=== PATIENT | female | born 1990 | race Caucasian/White ===

== ENCOUNTER → 2023-09-13 16:01 | Outpatient (REF) | payer OTHER, SELFPAY | LOC: PNTC 16:01 | PROVIDERS: ATTENDING PHYSICIAN Obstetrics & Gynecology; REFERRING PHYSICIAN Advanced Practice Midwife | DX: Z36.0 Encounter for antenatal screening for chromosomal anomalies (principal); Z36.82 Encounter for antenatal screening for nuchal translucency; Z34.90 Encounter for supervision of normal pregnancy, unspecified, unspecified trimester | CPT/HCPCS: 76801; 76813 ==

== ENCOUNTER → 2024-02-07 11:34 | Outpatient (REF) | payer OTHER, SELFPAY | LOC: PNTC 11:34 | PROVIDERS: ATTENDING PHYSICIAN Advanced Practice Midwife | DX: O99.210 Obesity complicating pregnancy, unspecified trimester (principal) | CPT/HCPCS: 59025; 76815 ==

== ENCOUNTER → 2024-02-18 09:31 | Outpatient (REF) | payer OTHER, SELFPAY | LOC: PNTC 09:31 | PROVIDERS: ATTENDING PHYSICIAN Advanced Practice Midwife | DX: O99.210 Obesity complicating pregnancy, unspecified trimester (principal) | CPT/HCPCS: 59025; 76816 ==

== ENCOUNTER → 2024-03-03 11:09 | Outpatient (REF) | payer OTHER, SELFPAY | LOC: PNTC 11:09 | PROVIDERS: ATTENDING PHYSICIAN Advanced Practice Midwife | DX: O99.210 Obesity complicating pregnancy, unspecified trimester (principal) | CPT/HCPCS: 59025; 76815 ==

== ENCOUNTER → 2024-03-11 08:59 | Outpatient (REF) | payer OTHER, SELFPAY | LOC: PNTC 08:59 | PROVIDERS: ATTENDING PHYSICIAN Advanced Practice Midwife | DX: O36.60X0 Maternal care for excessive fetal growth, unspecified trimester, not applicable or unspecified (principal) | CPT/HCPCS: 59025; 76816 ==

== ENCOUNTER 2024-03-19 07:22 | Inpatient (IN) | payer OTHER, SELFPAY ==
--- NOTE | 2024-03-17 10:05 | HPS.HSE ---
Family Physician
-
Family Physician: Kesha Ponce
Chief Complaint
-
repeat section
History of Present Illness
HPI: Patient is a 33yo with an HAILEY of 2/2 who presents for scheduled repeat section. She has a history of one prior section for transverse presentation.
complications:
- Hx C/Sx1 for transverse presentation
- Obesity, BMI 35
- GBS in urine
- Suspected macrosomia- EFW >90%tile on 03/11
PMHx: childhood asthma, migraines
Meds: PNV
Surghx: PLTCS
NKDA
Socialhx: denies tobacco, etoh or illicit drug use
Famhx: father w/ HTN, mother w/ DM, maternal grandmother w/ DM, paternal grandmother w/ colon cancer, maternal grandfather w/ DM, paternal grandfather w/ [place]
OBHx: G1: ; G2 PLTCS transverse
labs: Blood type A+, Ab neg, rubella immune, RPR nonreactive, UCx GBS, HBsAg neg, HIV neg, GCCT neg, A1C 5.5, Hep C neg, 1hr 118, GBS positive
Medical History
Past Medical History
Past Medical History: Reports Asthma
Past Surgical History: Reports
Social History
Tobacco: Non-smoker
Alcohol: None
Drug: None
Family History
Family History: Cancer, Diabetes and Hypertension
Allergies / Home Medications
Allergies reflects when Allergies were last updated in [facility] [employer].
Home Medications with original date entered in [facility]
Allergy/Medication List:
Meds: PNV
NKDA
Review of Systems
-
A 12 point ROS was completed and negative except as noted: Yes
Physical Exam
Physical Exam
General: Well Developed
HEENT: NormoCephalic
Respiratory: Non Labored Respirations
Cardiac: Regular Rhythm
GI: Non Tender
Skin: Warm and Dry
Neuro: Awake and Alert
Psych: Calm
Impression/Plan
-
IMPRESSION:
Patient is a 33yo with an HAILEY of 2/2 who presents for scheduled repeat section
PLAN:
- Admission labs
- Ancef prior to
- Risks, benefits and alternatives discussed including bleeding, infection, damage to surrounding structures and need for future operations. Consents were signed in the office
- Proceed with repeat section
[2024-03-19 07:33] VITALS: BMI 38.1
[2024-03-19 07:34] VITALS: BP 129/96
[2024-03-19 08:01] LABS: Hematocrit 29.1 % (37.0-47.0); Hemoglobin 9.9 g/dL (12.0-16.0); Mean Corpuscular Hgb 27.1 pg (27.0-31.0); Mean Corpuscular Volume 79.7 fL (81.0-99.0); Mean Platelet Volume 10.4 fL (7.4-10.4); Platelet Count 257 10^3/uL (130-400); Red Blood Cell Count 3.65 10^6/uL (4.20-5.40); Red Cell Dist. Width 14.4 % (11.5-14.5); White Blood Cell Count 11.4 10^3/uL (4.8-10.8)
[2024-03-19] MEDS: BICITRA 30 ML PO (08:58)
[2024-03-19] MEDS: TYLENOL 1000 MG PO (08:58)
[2024-03-19] MEDS: LR 1000 IV (08:59)
[2024-03-19] MEDS: ANCEF 10 IV (08:59)
[2024-03-19] MEDS: PITOCIN 30 UNITS/NSS 500 ML IV (10:01)
--- NOTE | 2024-03-19 15:25 | OR.RPT ---
Addendum entered and electronically signed by Mercedes Marquez DO 03/20/24 18:22:
Ash Kier Boiler: Radha Haji CNM
Original Note:
Operative Report
Operative Report
Preop diagnosis: IUP @40.1, history of prior , unstable lie
Postop diagnosis: same
Procedure: Repeat low transverse section
Surgeon: Alma
Anesthesia: Spinal, Dr. Perez
QBL: 350mL
Findings: Viable female born at 1001 with Apgars 8/9. Normal appearing uterus, bilateral fallopian tubes and ovaries. Nuchal x1, easily reduced
Complications: none
Indication: Patient is a 33yo [id number] at 40.1 weeks who presented to Labor and Delivery for scheduled repeat section. She has a history of one prior section. Fetus has been unstable lie between breech and cephalic. Fetus cephalic
today. Risks, benefits, and alternatives were discussed and consents were previously signed.
Procedure: Patient was taken to the operating room where spinal anesthesia was administered and found to be adequate. 2g of Ancef were given for infection prophylaxis. The abdomen was prepped with ChloraPrep. The patient was draped in the normal
sterile fashion. She was placed in the dorsal supine position with a left lateral tilt. A Pfannenstiel incision was made with a 10 blade and carried down to the fascia with a scalpel. Hemostasis achieved with Bovie. The fascia was incised and
dissected laterally with Dumont scissors. The superior aspect of the fascia was grasped with Yvon clamps. The underlying rectus fascia was sharply dissected with Dumont scissors. In a similar fashion the inferior aspect of the fascia was elevated with
Yvon clamps and the rectus muscle was dissected off with Dumont scissors. The rectus muscles were down the midline to the level of the pubic symphysis with manual dissection. The peritoneum was bluntly entered and extended with manual
traction and Metzenbaum scissors.
Ch retractor and bladder blade were placed revealing good visualization of the bladder. The vesicouterine peritoneum was identified. A thin lower uterine segment was noted. A bladder flap was developed with Metzenbaum scissors. The lower
uterine segment was incised with a scalpel. Clear amniotic fluid noted at entry into the cavity. The uterine incision was extended bluntly with lateral and upward traction.
The fetus was in cephalic presentation. The head was brought to the hysterotomy. Gentle fundal pressure was applied and the head delivered. A loose nuchal x1 was reduced at the level of the hysterotomy. The rest of the body delivered without
difficulty. Delayed cord clamping was performed. The was handed off to the etl informatica architect. Cord gases and cord blood were collected. IV oxytocin was started to facilitate uterine contractions. The placenta was expressed with fundal massage and
gentle traction. The uterus was exteriorized. Allis clamps were placed at the apices of the hysterotomy. The inside of the uterus was wiped with a lap sponge to assure complete removal of placental membranes. Fundal massage was performed and uterus
noted to be firm. The uterine incision was closed with 0 Vicryl in a running locked fashion. A horizontal imbricating stitch was done on the hysterotomy. Oozing from the serosa inferior to the hysterotomy was controlled with Bovie cautery. The
hysterotomy was inspected and noted to be hemostatic. The uterus was placed back in the abdomen. Blood clots and fluid were wiped out of the abdomen and pelvis with moist laparotomy sponges. The hysterotomy was examined and was hemostatic.
The rectus muscles were inspected and noted to be hemostatic. The fascial layer was closed in a running continuous fashion using 1 PDS. The subcutaneous tissue was copiously irrigated and any small bleeding vessels were cauterized with Bovie
cautery. The subcutaneous tissue was reapproximated in a running continuous fashion with 2-0 Plain in 2 layers. The skin was closed with 4-0 Vicryl in a subcuticular fashion. The incision was covered with skin glue. The patient tolerated the
procedure well. All sponge and instrument counts were correct times two. The patient was taken to the recovery room in stable condition.
[2024-03-19] MEDS: TORADOL 15 MG IV ×2 (15:57→21:57)
[2024-03-20] MEDS: TORADOL 15 MG IV ×2 (03:45→10:04)
[2024-03-20 04:43] LABS: Hematocrit 25.4 % (37.0-47.0); Hemoglobin 8.4 g/dL (12.0-16.0); Mean Corp Hgb Conc. 33.1 g/dL (33.0-37.0); Mean Corpuscular Hgb 27.4 pg (27.0-31.0); Mean Corpuscular Volume 82.7 fL (81.0-99.0); Mean Platelet Volume 11.1 fL (7.4-10.4); Platelet Count 254 10^3/uL (130-400); Red Blood Cell Count 3.07 10^6/uL (4.20-5.40); Red Cell Dist. Width 14.6 % (11.5-14.5); White Blood Cell Count 14.4 10^3/uL (4.8-10.8)
[2024-03-20] MEDS: FEOSOL 325 MG PO (08:20)
--- NOTE | 2024-03-20 10:39 | W.PN.ANS.POP ---
Anesthesia Post Operative
- Anesthesia Post Op Note
Vital Signs Stable-See Nursing Note: Yes
Airway Patent: Yes
Adequate Pain Control: Yes
Change in Mental Status: No
Current Postoperative Nausea & Vomiting: No
Anesthesia Complications: No
General Anesthetic Recall: No
Unplanned Admission: No
Post Op Hydration Adequate: Yes
[2024-03-20] MEDS: MOTRIN 600 MG PO ×2 (17:02→23:58)
[2024-03-20] MEDS: TYLENOL 650 MG PO (23:58)
[2024-03-21] MEDS: MOTRIN 600 MG PO ×3 (08:02→22:16)
[2024-03-21] MEDS: FEOSOL 325 MG PO (08:03)
[2024-03-21] MEDS: TYLENOL 650 MG PO ×3 (08:03→22:15)
[2024-03-21 10:53] LABS: Syphilis/T. pallidum Ab Reflex Negative (Negative)
[2024-03-21] MEDS: SENOKOT-S 1 TABLET PO (13:07)
[2024-03-22] MEDS: FEOSOL 325 MG PO (08:57)
[2024-03-22] MEDS: MOTRIN 600 MG PO (08:57)
[2024-03-22] MEDS: SENOKOT-S 1 TABLET PO (08:57)
[2024-03-22] MEDS: TYLENOL 650 MG PO (08:58)
--- NOTE | 2024-03-22 09:41 | W.DS.TRANS ---
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
-
Discharge Instructions:
Discharge Diagnosis/Procedures S/P Repeat C/S
Diet No restrictions
Activity No strenuous activity
Driving Restrictions No driving for 2 weeks
Instructions:
Stand-Alone Forms: LDRP Delivery
Changes to Home Medications: No
Discharge Medications:
DC Medications w/original date entered in [employer]
acetaminophen 325 mg tablet 650 mg (2 x 325 mg) PO Q4HPRN PRN mild pain #30 tabs 03/21/24
ferrous sulfate 325 mg (65 mg iron) tablet (FeroSul) 325 mg PO DAILY #30 tabs 03/21/24
ibuprofen 600 mg tablet 600 mg PO Q6HPRN PRN cramps #30 tabs 03/21/24
sennosides 8.6 mg-docusate sodium 50 mg tablet 1 tab PO DAILYPRN PRN constipation #20 tabs 03/21/24
Home Medication Changes
Pending Results: No
Total time spent discharging patient (in min): 20
== END 2024-03-22 12:15 | disposition home or self-care (01) | DRG 788 ==
LOC: LDRP 07:22
PROVIDERS: ADMITTING PHYSICIAN Student in an Organized Health Care Education/Training Program; FAMILY PHYSICIAN Nurse Practitioner
PROC: 10D00Z1 Extraction of Products of Conception, Low, Open Approach (ICD-10-PCS; 2024-03-19)
PROC: 6A550ZT Pheresis of Cord Blood Stem Cells, Single (ICD-10-PCS; 2024-03-19)
DX: O34.211 Maternal care for low transverse scar from previous cesarean delivery (principal); Z3A.40 40 weeks gestation of pregnancy; Z37.0 Single live birth; O99.824 Streptococcus B carrier state complicating childbirth; O48.0 Post-term pregnancy; O32.2XX0 Maternal care for transverse and oblique lie, not applicable or unspecified; O69.81X0 Labor and delivery complicated by cord around neck, without compression, not applicable or unspecified; J45.909 Unspecified asthma, uncomplicated; O99.52 Diseases of the respiratory system complicating childbirth; O90.81 Anemia of the puerperium; D64.9 Anemia, unspecified; O99.214 Obesity complicating childbirth; O36.63X0 Maternal care for excessive fetal growth, third trimester, not applicable or unspecified; Z83.3 Family history of diabetes mellitus; Z82.49 Family history of ischemic heart disease and other diseases of the circulatory system; Z80.0 Family history of malignant neoplasm of digestive organs
CPT/HCPCS: 36415; 85027; 86780; 86850; 86900; 86901